=== PATIENT | female | born 1985 | race American Indian/Alaskan Native ===

== ENCOUNTER 2019-03-22 16:32 | Emergency (ER) | payer OTHER ==
[2019-03-22] MEDS ORDERED: CLEOCIN 600 MG/50 mL 600 MG/50 ML BAG IV ONE (16:48)
[2019-03-22] MEDS ORDERED: MOTRIN PO ONE (16:48)
[2019-03-22] MEDS ORDERED: NACL 0.9% 1000 ML 1,000 ML IV ONE (16:49)
--- NOTE | 2019-03-22 16:49 | Emergency Department Report ---
Chief Complaint: Sore Throat Stated Complaint: SORE THROAT/COLD/HEADACHE Time Seen by Provider: 03/22/19 16:47 - HPI History of Present Illness: HOARSE VOICE PURULENT POCKETS BILATERAL TONSILS [employer] MSE - Exam Vital Signs: Vital Signs 03/22/19 16:45 Temperature 103.1 F H Pulse Rate 113 H Respiratory 18 Rate Blood Pressure 136/76 O2 Sat by Pulse 99 Oximetry MSE screening note: Focused history and physical exam performed. Due to findings the following was ordered: ED Disposition for MSE Condition: Stable
[2019-03-22 17:33] LABS: Hematocrit 38.5 % (30.3-42.9); Hemoglobin 12.7 gm/dl (10.1-14.3); Mean Corpuscular HGB Conc 33 % (30-34); Mean Corpuscular Volume 85 fl (79-97); Platelet Count 271 K/mm3 (140-440); Red Blood Count 4.55 M/mm3 (3.65-5.03); Red Cell Distribution Width 14.2 % (13.2-15.2)
[2019-03-22 17:39] LABS: BUN/Creatinine Ratio 10; Blood Urea Nitrogen 7 mg/dL (7-17); Calcium 8.9 mg/dL (8.4-10.2); Hemolysis Index 0
[2019-03-22] MEDS ORDERED: DECADRON IV ONE (18:01)
[2019-03-22] MEDS ORDERED: BICILLIN L-A IM ONE (19:58)
--- NOTE | 2019-03-22 20:01 | Emergency Department Report ---
ED ENT HPI - General Chief complaint: Sore Throat Stated complaint: SORE THROAT/COLD/HEADACHE Time Seen by Provider: 03/22/19 16:47 Source: patient Mode of arrival: Ambulatory Limitations: Language Barrier - History of Present Illness Initial comments: 33-year-old -[place] female presents to the emergency room complaining of sore throat cough headache 2 days with chills. Patient also admits to body aches. She has tried [id number] medications but did not take anything for fever. Patient reports no past medical history currently takes no medications on a daily basis and has no known drug allergies. MD complaint: sore throat -: days(s) (2) Location: throat Severity scale (0 -10): 8 Quality: aching Consistency: constant Improves with: none Worsens with: swallowing Associated Symptoms: fever, cough, sore throat, other (headache) - Related Data Previous Rx's Medication Instructions Recorded Last Taken Type metroNIDAZOLE [Flagyl] 500 mg PO Q12HR #14 tab 09/22/15 Unknown Rx Amoxicillin/Potassium Clav 1 each PO BID #20 tablet 03/22/19 Unknown Rx [Augmentin 875-125 Tablet] Ibuprofen [Motrin 800 MG tab] 800 mg PO Q8HR PRN #30 tablet 03/22/19 Unknown Rx Allergies Allergy/AdvReac Type Severity Reaction Status Date / Time No Known Allergies Allergy Unverified 09/22/15 07:34 ED Dental HPI - General Chief complaint: Sore Throat Stated complaint: SORE THROAT/COLD/HEADACHE Time Seen by Provider: 03/22/19 16:47 Source: patient Mode of arrival: Ambulatory Limitations: Language Barrier - Related Data Previous Rx's Medication Instructions Recorded Last Taken Type metroNIDAZOLE [Flagyl] 500 mg PO Q12HR #14 tab 09/22/15 Unknown Rx Amoxicillin/Potassium Clav 1 each PO BID #20 tablet 03/22/19 Unknown Rx [Augmentin 875-125 Tablet] Ibuprofen [Motrin 800 MG tab] 800 mg PO Q8HR PRN #30 tablet 03/22/19 Unknown Rx Allergies Allergy/AdvReac Type Severity Reaction Status Date / Time No Known Allergies Allergy Unverified 09/22/15 07:34 ED Review of Systems ROS: Stated complaint: SORE THROAT/COLD/HEADACHE Other details as noted in HPI Constitutional: chills, fever ENT: throat pain Respiratory: cough Neurological: headache ED Past Medical Hx - Past Medical History Previous Medical History?: No - Surgical History Past Surgical History?: No - Social History Smoking Status: Never Smoker Substance Use Type: None - Medications Home Medications: Home Medications Medication Instructions Recorded Confirmed Last Taken Type metroNIDAZOLE [Flagyl] 500 mg PO Q12HR #14 tab 09/22/15 Unknown Rx Amoxicillin/Potassium Clav 1 each PO BID #20 tablet 03/22/19 Unknown Rx [Augmentin 875-125 Tablet] Ibuprofen [Motrin 800 MG tab] 800 mg PO Q8HR PRN #30 tablet 03/22/19 Unknown Rx ED Physical Exam - General Limitations: Language Barrier General appearance: alert, in no apparent distress, other (eating crackers) - Head Head exam: Present: atraumatic, normocephalic - Eye Eye exam: Present: PERRL, EOMI - ENT ENT exam: Present: other (uvula midline) - Expanded ENT Exam Expanded Throat exam: Positive: tonsillar erythema, tonsillomegaly, tonsillar exudate - Neck Neck exam: Present: full ROM, lymphadenopathy - Respiratory Respiratory exam: Present: normal lung sounds bilaterally. Absent: respiratory distress - Cardiovascular Cardiovascular Exam: Present: tachycardia - GI/Abdominal GI/Abdominal exam: Present: soft, normal bowel sounds - Neurological Exam Neurological exam: Present: alert, oriented X3 - Psychiatric Psychiatric exam: Present: normal affect, normal mood - Skin Skin exam: Present: warm, dry, intact, normal color. Absent: rash ED Course Vital Signs 03/22/19 03/22/19 16:45 18:46 Temperature 103.1 F H Pulse Rate 113 H Respiratory 18 18 Rate Blood Pressure 136/76 O2 Sat by Pulse 99 Oximetry ED Medical Decision Making - Lab Data Result diagrams: 03/22/19 17:05 03/22/19 17:05 Critical care attestation.: If time is entered above; I have spent that time in minutes in the direct care of this critically ill patient, excluding procedure time. ED Disposition Clinical Impression: Pharyngitis, streptococcal, acute Disposition: DC-01 TO HOME OR SELFCARE Is pt being admited?: No Does the pt Need Aspirin: No Condition: Stable Instructions: Strep Throat (ED) Additional Instructions: Complete antibiotics as prescribed. Take pain medication as needed. If his symptoms persist or gets worse please follow up with your primary care provider. I have listed one below for your convenience. Prescriptions: Amoxicillin/Potassium Clav [Augmentin 875-125 Tablet] 1 each PO BID #20 tablet Ibuprofen [Motrin 800 MG tab] 800 mg PO Q8HR PRN #30 tablet PRN Reason: Pain , Severe (7-10) Referrals: DILMA TOURE MD [Primary Care Provider] - 3-5 Days Forms: Work/School Release Form(ED)
[2019-03-22 20:30] LABS: Bilirubin,Urine NEG (Negative); Blood,Urine LG (Negative); Color,Urine Amber (Yellow); Mucus,Urine 3+ /HPF
[2019-03-22 20:34] LABS: HCG Qualitative,Urine Negative (Negative)
[2019-03-22 20:36] VITALS: BP 116/68
[2019-03-22] MEDS ORDERED: TYLENOL ONE (20:42)
[2019-03-22] MEDS ORDERED: TYLENOL #3 PO ONE (20:43)
[2019-03-22] MEDS ORDERED: TYLENOL #3 ONE (20:43)
[2019-03-22] MEDS ORDERED: TYLENOL PO ONE (20:43)
== END 2019-03-22 21:10 | disposition home or self-care (01) ==
LOC: ED 16:32
DX: J02.0 Streptococcal pharyngitis (principal)
CPT/HCPCS: 36415; 80048; 81001; 81025; 85027; 87430; 96372; 96374; 99284; J0561; J1100